=== PATIENT | female | born 1995 | race Caucasian/White ===

== ENCOUNTER 2016-12-04 14:16 | Emergency (ER) | payer BC ==
--- NOTE | 2016-12-04 14:45 | EDM.PDOC ---
ED HPI GENERAL MEDICAL PROBLEM - General Chief Complaint: Chest Pain Stated Complaint: RT SIDE CHEST PAIN Time Seen by Provider: 12/04/16 14:45 Source of Information: Reports: Patient History Limitations: Reports: No Limitations - History of Present Illness INITIAL COMMENTS - FREE TEXT/NARRATIVE: 21-year-old female presents the ED for evaluation of acute onset of right upper anterior chest pressure discomfort. Pain started about 10:00 this morning while she was at work and was worsened by bending over. She has no known injury or recent trauma to this area. Hurts a little bit at times when she takes a very deep breath. No recent coughing spells no fever no chills. In Any phlegm. No recent workouts in the gym. Has a bad family history of coronary disease. She is a never smoker. Has been on control pill for many months. Currently menstruating , this is day 2. Onset: Today Onset Date: 12/04/16 Onset Time: 10:00 Duration: Hour(s): Location: Reports: Chest (Right upper anterior chest.) Quality: Reports: Ache, Pressure Severity: Moderate Improves with: Reports: None (Rates pain as 45 out of 10.) Worsens with: Reports: Other (Hard cough) Context: Denies: Activity, Exercise, Lifting, Sick Contact, Trauma, Other Associated Symptoms: Reports: No Other Symptoms. Denies: Confusion, Chest Pain , Cough, cough w sputum, Fever/Chills, Headaches, Loss of Appetite, Malaise, Seizure, Shortness of Breath, Syncope Treatments KST OPERATOR: Reports: Other (see below) (None.) Right Chest Pain Score (Numeric/FACES): 2 - Related Data Allergies Allergy/AdvReac Type Severity Reaction Status Date / Time No Known Allergies Allergy Verified 12/04/16 14:27 Past Medical History - Past Surgical History HEENT Surgical History: Reports: Other (See Below) Other HEENT Surgeries/Procedures: dental surgery Social & Family History - Tobacco Use Smoking Status *Q: Never Smoker - Caffeine Use Caffeine Use: Reports: None - Recreational Drug Use Recreational Drug Use: No - Living Situation & Occupation Occupation: Employed ED ROS GENERAL - Review of Systems Review Of Systems: See Below Constitutional: Reports: No Symptoms HEENT: Reports: No Symptoms Respiratory: Reports: No Symptoms Cardiovascular: Reports: No Symptoms Endocrine: Reports: No Symptoms GI/Abdominal: Reports: No Symptoms : Reports: No Symptoms Musculoskeletal: Reports: No Symptoms Skin: Reports: No Symptoms Neurological: Reports: No Symptoms Psychiatric: Reports: No Symptoms Hematologic/Lymphatic: Reports: No Symptoms Immunologic: Reports: No Symptoms ED EXAM, GENERAL - Physical Exam Exam: See Below Exam Limited By: No Limitations General Appearance: Alert, WD/WN, Anxious, Mild Distress Throat/Mouth: Normal Inspection, Normal Lips, Normal Oropharynx Head: Atraumatic, Normocephalic Neck: Normal Inspection, Supple, Non-Tender, Full Range of Motion Respiratory/Chest: No Respiratory Distress, Lungs Clear, Normal Breath Sounds, No Accessory Muscle Use, Other (Chest wall is very tender over ribs 2 and 3 midclavicular line right anterior chest. Particular rib 3.) Cardiovascular: Normal Peripheral Pulses, Regular Rate, Rhythm, No Edema, No Murmur Peripheral Pulses: 2+: Posterior Tibial (L), Posterior Tibial (R), Dorsalis Pedis (L), Dorsalis Pedis (R) GI/Abdominal: Normal Bowel Sounds, Soft, Non-Tender, No Organomegaly, No Distention, No Abnormal Bruit, No Mass (Female) Exam: Normal External Exam, Normal Speculum Exam Extremities: Normal Inspection, Normal Range of Motion, Non-Tender, Normal Capillary Refill Neurological: Alert, Oriented, CN II-XII Intact, Normal Cognition, Normal Reflexes, No Motor/Sensory Deficits Psychiatric: Normal Affect, Normal Mood Skin Exam: Warm, Dry, Intact, Normal Color, No Rash Course - Vital Signs Last Recorded V/S: Last Vital Signs Temp 36.6 C 12/04/16 14:22 Pulse 94 12/04/16 14:22 Resp 18 12/04/16 14:22 BP 123/88 12/04/16 14:22 Pulse Ox 100 12/04/16 14:22 - Orders/Labs/Meds Orders: Active Orders 24 hr Category Date Time Status EKG Documentation Completion [RC] STAT Care 12/04/16 14:51 Active Labs: Laboratory Tests 12/04/16 Range/Units 15:15 D-Dimer, Quantitative < 0.19 L (0.19-0.59) mg/L - Radiology Interpretation Free Text/Narrative:: 21-year-old female presents the ED with acute onset of right upper anterior chest pain. About 10:00 this morning and is described as more deep aching pressure discomfort. She's been on oral concept pill for greater than 6 months. Currently on menstrual cycle due two. Examination is normal other than pain on compression of the third and second rib in the midclavicular line right anterior chest wall. Appears that there is a perichondritis in this area.. Plan ECG. One view chest x-ray. Labs to rule out clot with d-dimer. - Re-Assessments/Exams Free Text/Narrative Re-Assessment/Exam: 12/04/16 15:18 chest x-ray one view is normal. ECG reveals sinus rhythm at 70/m with early R-wave transition but otherwise normal ECG. Labs are pending 12/04/16 16:24 d-dimer is less than 0.19. Therefore her chest pain is chest wall in origin. She'll be treated conservatively with anti-inflammatory Aleve 2 tabs -- 3 times daily for the next 7 days to clear up inflammation and pain. Departure - Departure Time of Disposition: 16:26 Disposition: Home, Self-Care 01 Condition: Fair Clinical Impression: Non-cardiac chest pain, Anterior chest wall pain Instructions: Chest Wall Pain, [id number], Nonspecific Chest Pain, Easy-to- Read Referrals: PCP,None [Primary Care Provider] - Forms: ED Department Discharge Additional Instructions: Evaluation the emergency room today in regards to development of deep aching pain in the right upper anterior chest. Examination reveals tenderness particularly ribs 2 and 3 and 4 in the midclavicular line right anterior chest. X-ray was normal ECG was normal and lab work was negative for any blood clot or heart related illness. Inflammation of the rib or the lining around the rib is not uncommon. It can be viral induced and can sometimes last several weeks. It may be from a push pull injury 2-3 days ago that we don't remember what we did. Suggest using Aleve 2 tablets every 8 hours as needed for relief of pain and inflammation. She'll improvement over the next 5-7days. Coarse return to medical care if condition worsens rather than gets better in that timeframe. - My Orders Last 24 Hours: My Active Orders 12/04/16 14:51 EKG Documentation Completion [RC] STAT - Assessment/Plan Last 24 Hours: My Active Orders 12/04/16 14:51 EKG Documentation Completion [RC] STAT
--- NOTE | 2016-12-04 15:34 | CR ---
Chest: Portable view of the chest was obtained. Comparison: No previous study. Heart size and mediastinum are normal. Lungs are clear. Bony structures are grossly intact. Impression: 1. Nothing acute is identified on portable chest x-ray. Diagnostic code #1
[2016-12-04 16:47] VITALS: BP 117/83
== END 2016-12-04 16:37 | disposition home or self-care (01) ==
LOC: JD.ED 14:16
DX: R07.89 Other chest pain (principal); Z98.890 Other specified postprocedural states
CPT/HCPCS: 36415; 71010; 71010-26; 85379; 93005; 99283; 99285-25

== ENCOUNTER 2017-08-24 18:51 | Emergency (ER) | payer BC, OTHER ==
[2017-08-24 19:02] VITALS: BP 124/89
--- NOTE | 2017-08-24 19:39 | EDM.PDOC ---
ED HPI GENERAL MEDICAL PROBLEM - General Chief Complaint: Headache Stated Complaint: TROWING UP, HEAD HURTS Time Seen by Provider: 08/24/17 19:11 Source of Information: Reports: Patient History Limitations: Reports: No Limitations - History of Present Illness INITIAL COMMENTS - FREE TEXT/NARRATIVE: 22-year-old female presents for evaluation and treatment of a headache and nausea. States she's had a headache daily for the last week. States it is located on the left frontal area. Currently rates the pain as a 2 /10. It is present every day of the week but has been intermittent throughout the day. Reports associated symptoms of nausea. No vomiting, numbness, tingling, photophobia or phonophobia. No history of migraine headaches. No recent cough or cold symptoms. No fevers, earaches or sore throat. Patient has been taking Tylenol, Motrin and coffee without any relief of her headaches. Patient questions if she is . Her last menstrual period was on August 13. 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 Her menstrual cycle in June was a normal menstrual cycle for her. She states that she has had some lower abdominal cramping. She also feels that her breasts are more tender than normal. She has been experiencing a stronger urine odor and color. No dysuria. No heartburn. She is is . She has not taking the at-home test. Treatments LATENT FINGERPRINT EXAMINER: Reports: Other (see below) Other Treatments LATENT FINGERPRINT EXAMINER: motrin,coffee, advil Headache Pain Score (Numeric/FACES): 2 - Related Data Allergies Allergy/AdvReac Type Severity Reaction Status Date / Time sulfamethoxazole Allergy Nausea and Verified 08/24/17 19:02 [From Bactrim] Vomiting trimethoprim [From Bactrim] Allergy Nausea and Verified 08/24/17 19:02 Vomiting Home Meds: Home Meds Nitrofurantoin Monohyd/M-Cryst [Macrobid 100 mg Capsule] 100 mg PO BID #13 capsule 08/24/17 [Rx] hydrOXYzine HCl [hydrOXYzine] 25 mg PO ASDIRECTED 08/24/17 [History] Past Medical History Psychiatric History: Reports: Anxiety - Past Surgical History HEENT Surgical History: Reports: Other (See Below) Other HEENT Surgeries/Procedures: dental surgery Social & Family History - Tobacco Use Smoking Status *Q: Never Smoker - Caffeine Use Caffeine Use: Reports: Coffee, Tea - Recreational Drug Use Recreational Drug Use: No - Living Situation & Occupation Occupation: Employed ED ROS GENERAL - Review of Systems Review Of Systems: See Below Constitutional: Denies: Fever, Chills HEENT: Reports: Other (Denies any photophobia or phonophobia.). Denies: Ear Pain, Sinus Problem, Throat Pain GI/Abdominal: Reports: Abdominal Pain (lower), Nausea, Other (no heartburn). Denies: Vomiting : Reports: Pain (lower abdominal/pelvic cramping), Other (strong urine odor, darker urine color). Denies: Dysuria Neurological: Reports: Headache. Denies: Numbness, Tingling - Physical Exam Exam: See Below Exam Limited By: No Limitations General Appearance: Alert, WD/WN, No Apparent Distress Eye Exam: Bilateral Eye: Normal Inspection, PERRL Ears: Normal External Exam, Normal Canal, Hearing Grossly Normal, Normal TMs Nose: Normal Inspection Throat/Mouth: Normal Inspection, Normal Lips, Normal Voice, No Airway Compromise Neck: Normal Inspection, Full Range of Motion Respiratory/Chest: No Respiratory Distress, Lungs Clear, Normal Breath Sounds Cardiovascular: Normal Peripheral Pulses, Regular Rate, Rhythm, No Murmur Neuro Exam (Abbreviated): Alert, Oriented, Normal Cognition, Normal Gait Psychiatric: Normal Affect, Normal Mood Skin Exam: Warm, Dry, Normal Color Course - Vital Signs Last Recorded V/S: Last Vital Signs Temp 36.9 C 08/24/17 19:01 Pulse 82 08/24/17 19:01 Resp 20 08/24/17 19:01 BP 124/89 08/24/17 19:01 Pulse Ox 99 08/24/17 19:01 - Orders/Labs/Meds Orders: Active Orders 24 hr Category Date Time Status CULTURE URINE [RM] Stat Lab 08/24/17 19:45 Ordered UA W/MICROSCOPIC [URIN] Stat Lab 08/24/17 19:45 Ordered Ketorolac [Toradol] Med 08/24/17 20:28 Once 60 mg IM ONETIME ONE Nitrofurantoin [place]/Macrocryst [Macrobid] Med 08/24/17 20:28 Once 100 mg PO ONETIME ONE Medication Orders Ketorolac Tromethamine (Toradol) 60 mg IM ONETIME ONE Stop: 08/24/17 20:29 Nitrofurantoin Macrocrystals (Macrobid) 100 mg PO ONETIME ONE Stop: 08/24/17 20:29 Labs: Laboratory Tests 08/24/17 08/24/17 Range/Units 19:45 19:51 HCG, Quant < 1.0 mIU/mL Urine Color Yellow (Yellow) Urine Appearance Slt cloudy H (Clear) Urine pH 7.0 (5.0-8.0) Ur Specific [place] 1.020 (1.005-1.030) Urine Protein Negative (Negative) Urine Glucose (UA) Negative (Negative) Urine Ketones Negative (Negative) Urine Occult Blood Negative (Negative) Urine Nitrite Negative (Negative) Urine Bilirubin Negative (Negative) Urine Urobilinogen 0.2 (0.2-1.0) Ur Leukocyte Esterase Trace H (Negative) Urine RBC 0-5 (0-5) /hpf Urine WBC 5-10 H (0-5) /hpf Ur Epithelial Cells 10-20 H (0-5) /hpf Amorphous Sediment Moderate H (NOT SEEN) /hpf Urine Bacteria Moderate H (FEW) /hpf Urine Mucus Not seen (FEW) /hpf Meds: Medications Generic Name Dose Route Start Last Admin Trade Name Freq PRN Reason Stop Dose Admin Ketorolac Tromethamine 60 mg 08/24/17 20:28 Toradol IM 08/24/17 20:29 ONETIME ONE Nitrofurantoin Macrocrystals 100 mg 08/24/17 20:28 Macrobid PO 08/24/17 20:29 ONETIME ONE - Re-Assessments/Exams Free Text/Narrative Re-Assessment/Exam: 08/24/17 20:29 Reviewed the lab results with the patient. Now that We've confirmed she is not I will order her some IM Toradol and star her on some Macrobid for urinary tract infection. Discharge instructions as documented. Departure - Departure Time of Disposition: 20:30 Disposition: Home, Self-Care 01 Condition: Good Clinical Impression: UTI (urinary tract infection), Headache - Discharge Information Prescriptions: Nitrofurantoin Monohyd/M-Cryst [Macrobid 100 mg Capsule] 100 mg PO BID #13 capsule Referrals: PCP,None [Primary Care Provider] - Forms: ED Department Discharge Additional Instructions: Continue take [id number] Tylenol and Motrin as needed for headache symptom relief. Make sure you are drinking plenty of fluids. Macrobid 1 Twice a day for 7 days. your first dose was given in the ER. Start your prescription tomorrow. follow-up with your primary care provider if your symptoms have not improved much within 1-2 weeks. Please return to ER if your symptoms change or worsen. - My Orders Last 24 Hours: My Active Orders 08/24/17 19:45 CULTURE URINE [RM] Stat UA W/MICROSCOPIC [URIN] Stat 08/24/17 20:28 Ketorolac [Toradol] 60 mg IM ONETIME ONE Nitrofurantoin [place]/Macrocryst [Macrobid] 100 mg PO ONETIME ONE - Assessment/Plan Last 24 Hours: My Active Orders 08/24/17 19:45 CULTURE URINE [RM] Stat UA W/MICROSCOPIC [URIN] Stat 08/24/17 20:28 Ketorolac [Toradol] 60 mg IM ONETIME ONE Nitrofurantoin [place]/Macrocryst [Macrobid] 100 mg PO ONETIME ONE
[2017-08-24] MEDS ORDERED: Nitrofurantoin Monohydrate/Macrocrystalline 100 MG Cap PO ONE (20:28)
[2017-08-24] MEDS ORDERED: Ketorolac 60 MG/2 ML SDV IM ONE (20:28)
== END 2017-08-24 20:40 | disposition home or self-care (01) ==
LOC: JD.ED 18:51
DX: N39.0 Urinary tract infection, site not specified (principal); R51 Headache; Z88.2 Allergy status to sulfonamides; Z88.1 Allergy status to other antibiotic agents
CPT/HCPCS: 36415; 81001; 84702; 87086; 96372; 99284; A9270; J1885; 99283

== ENCOUNTER 2019-07-25 00:11 | Emergency (ER) | payer BC, OTHER ==
[2019-07-25 00:19] VITALS: BP 135/89; PULSE 113
--- NOTE | 2019-07-25 00:26 | EDM.PDOC ---
ED HPI GENERAL MEDICAL PROBLEM - General Chief Complaint: Drug or Alcohol Abuse Stated Complaint: [facility] Time Seen by Provider: 07/25/19 00:20 Source of Information: Reports: Patient, EMS History Limitations: Reports: No Limitations - History of Present Illness INITIAL COMMENTS - FREE TEXT/NARRATIVE: This is a 24-year-old female. She apparently had to 30 mg Cori use and she crush them up and she snorted 1-1/2 of them are about 45 mg. She thereafter passed out and a friend who was across the [place] in the apartments heard her hit the floor. He came over thought she was breathing called 911 and when the police first arrived she was not breathing effectively and they started CPR on the patient. When the ambulance arrived she had a good pulse and they just continued with an Ambu bag. The police did give some Narcan intranasally but it did not seem to wake her up and with the ambulance arrived they gave her Narcan through the IV and she woke up. She is awake now and oriented. She complains of a sore chest. She denies any other acute symptoms. - Related Data Allergies Allergy/AdvReac Type Severity Reaction Status Date / Time sulfamethoxazole Allergy Nausea and Verified 07/25/19 00:15 [From Bactrim] Vomiting trimethoprim [From Bactrim] Allergy Nausea and Verified 07/25/19 00:15 Vomiting Home Meds: Home Meds hydrOXYzine HCL [hydrOXYzine] 25 mg PO ASDIRECTED 08/24/17 [History] Control 07/25/19 [History] Past Medical History Psychiatric History: Reports: Anxiety - Past Surgical History HEENT Surgical History: Reports: Other (See Below) Other HEENT Surgeries/Procedures: dental surgery Social & Family History - Tobacco Use Smoking Status *Q: Never Smoker - Caffeine Use Caffeine Use: Reports: Coffee, Tea - Recreational Drug Use Recreational Drug Use: Yes Drug Use in Last 12 Months: Yes Recreational Drug Type: Reports: Oxycodone - Living Situation & Occupation Occupation: Employed ED ROS GENERAL - Review of Systems Review Of Systems: See Below Constitutional: Denies: Fever, Chills HEENT: Reports: No Symptoms Respiratory: Denies: Shortness of Breath, Cough Cardiovascular: Reports: Chest Pain Endocrine: Reports: No Symptoms GI/Abdominal: Reports: No Symptoms : Reports: No Symptoms Musculoskeletal: Reports: No Symptoms Skin: Reports: No Symptoms Neurological: Reports: No Symptoms Psychiatric: Reports: No Symptoms Hematologic/Lymphatic: Reports: No Symptoms - Physical Exam Exam: See Below Exam Limited By: No Limitations General Appearance: Alert, WD/WN, No Apparent Distress Eye Exam: Bilateral Eye: Normal Inspection Ears: Normal External Exam Nose: Normal Inspection Throat/Mouth: Normal Inspection, Normal Lips, Normal Voice, No Airway Compromise Head Exam: Normocephalic Neck: Supple Respiratory/Chest: No Respiratory Distress, Lungs Clear, Normal Breath Sounds, Other (Center of chest is very sore on palpation) Cardiovascular: Regular Rate, Rhythm, No Murmur GI/Abdominal: Soft Neuro Exam (Abbreviated): Alert, Oriented, CN II-XII Intact, No Motor/Sensory Deficits Extremities: Normal Inspection, Normal Range of Motion Psychiatric: Normal Affect, Normal Mood Skin Exam: Warm, Dry Course - Vital Signs Last Recorded V/S: Last Vital Signs Temp 97.8 F 07/25/19 00:15 Pulse 113 H 07/25/19 00:15 Resp 18 07/25/19 00:15 BP 135/89 07/25/19 00:15 Pulse Ox 90 L 07/25/19 00:15 - Orders/Labs/Meds Labs: Laboratory Tests 07/25/19 07/25/19 07/25/19 Range/Units 00:31 00:31 00:31 WBC 6.97 (3.98-10.04) K/mm3 RBC 4.33 (3.98-5.22) M/mm3 Hgb 12.6 (11.2-15.7) gm/dl Hct 39.1 (34.1-44.9) % MCV 90.3 (79.4-94.8) fl MCH 29.1 (25.6-32.2) pg MCHC 32.2 (32.2-35.5) g/dl RDW Std Deviation 42.9 (36.4-46.3) fL Plt Count 357 (182-369) K/mm3 MPV 8.9 L (9.4-12.3) fl Neut % (Auto) 50.9 (34.0-71.1) % Lymph % (Auto) 41.6 (19.3-51.7) % [place] % (Auto) 5.7 (4.7-12.5) % Eos % (Auto) 1.4 (0.7-5.8) Baso % (Auto) 0.1 (0.1-1.2) % Neut # (Auto) 3.54 (1.56-6.13) K/mm3 Lymph # (Auto) 2.90 (1.18-3.74) K/mm3 [place] # (Auto) 0.40 H (0.24-0.36) K/mm3 Eos # (Auto) 0.10 (0.04-0.36) K/mm3 Baso # (Auto) 0.01 (0.01-0.08) K/mm3 Sodium 141 (136-145) mEq/L Potassium 3.5 (3.5-5.1) mEq/L Chloride 105 (98-107) mEq/L Carbon Dioxide 23 (21-32) mEq/L Anion Gap 16.5 H (5-15) BUN 10 (7-18) mg/dL Creatinine 0.9 (0.55-1.02) mg/dL Est Cr Clr Drug Dosing 80.42 mL/min Estimated GFR (MDRD) > 60 (>60) mL/min BUN/Creatinine Ratio 11.1 L (14-18) Glucose 140 H (74-106) mg/dL Calcium 8.9 (8.5-10.1) mg/dL Total Bilirubin 0.1 L (0.2-1.0) mg/dL AST 38 H (15-37) U/L ALT 51 (14-59) U/L Alkaline Phosphatase 56 (46-116) U/L Total Protein 7.2 (6.4-8.2) g/dl Albumin 3.4 (3.4-5.0) g/dl Globulin 3.8 gm/dL Albumin/Globulin Ratio 0.9 L (1-2) HCG, Qual Negative (NEGATIVE) Urine Color (Yellow) Urine Appearance (Clear) Urine pH (5.0-8.0) Ur Specific [place] (1.005-1.030) Urine Protein (Negative) Urine Glucose (UA) (Negative) Urine Ketones (Negative) Urine Occult Blood (Negative) Urine Nitrite (Negative) Urine Bilirubin (Negative) Urine Urobilinogen (0.2-1.0) Ur Leukocyte Esterase (Negative) U Hyaline Cast (Auto) (0-5) /lpf Urine RBC (0-5) /hpf Urine WBC (0-5) /hpf Ur Squamous Epith Cells (0-5) /hpf Urine Bacteria (FEW) /hpf Urine Mucus (FEW) /hpf Urine Opiates Screen (IECKFE=740) Ur Buprenorphine Scrn (CUTOFF=10) Ur Oxycodone Screen (KFI8CU=864) Urine Methadone Screen (EMGHSW=826) Ur Propoxyphene Screen (BBAFJD=791) Ur Barbiturates Screen (SCSDPP=079) Ur Tricyclics Screen (CAKKEB=095) Ur Phencyclidine Scrn (CUTOFF=25) Ur Amphetamine Screen (DPORKM=227) U Methamphetamines Scrn (MMJDRB=221) U Benzodiazepines Scrn (LBNCXS=097) U Cocaine Metab Screen (HEGOOD=074) U Marijuana (THC) Screen (CUTOFF=50) 07/25/19 07/25/19 Range/Units 00:41 00:41 WBC (3.98-10.04) K/mm3 RBC (3.98-5.22) M/mm3 Hgb (11.2-15.7) gm/dl Hct (34.1-44.9) % MCV (79.4-94.8) fl MCH (25.6-32.2) pg MCHC (32.2-35.5) g/dl RDW Std Deviation (36.4-46.3) fL Plt Count (182-369) K/mm3 MPV (9.4-12.3) fl Neut % (Auto) (34.0-71.1) % Lymph % (Auto) (19.3-51.7) % [place] % (Auto) (4.7-12.5) % Eos % (Auto) (0.7-5.8) Baso % (Auto) (0.1-1.2) % Neut # (Auto) (1.56-6.13) K/mm3 Lymph # (Auto) (1.18-3.74) K/mm3 [place] # (Auto) (0.24-0.36) K/mm3 Eos # (Auto) (0.04-0.36) K/mm3 Baso # (Auto) (0.01-0.08) K/mm3 Sodium (136-145) mEq/L Potassium (3.5-5.1) mEq/L Chloride (98-107) mEq/L Carbon Dioxide (21-32) mEq/L Anion Gap (5-15) BUN (7-18) mg/dL Creatinine (0.55-1.02) mg/dL Est Cr Clr Drug Dosing mL/min Estimated GFR (MDRD) (>60) mL/min BUN/Creatinine Ratio (14-18) Glucose (74-106) mg/dL Calcium (8.5-10.1) mg/dL Total Bilirubin (0.2-1.0) mg/dL AST (15-37) U/L ALT (14-59) U/L Alkaline Phosphatase (46-116) U/L Total Protein (6.4-8.2) g/dl Albumin (3.4-5.0) g/dl Globulin gm/dL Albumin/Globulin Ratio (1-2) HCG, Qual (NEGATIVE) Urine Color Yellow (Yellow) Urine Appearance Clear (Clear) Urine pH 7.0 (5.0-8.0) Ur Specific [place] 1.025 (1.005-1.030) Urine Protein Trace H (Negative) Urine Glucose (UA) Negative (Negative) Urine Ketones Negative (Negative) Urine Occult Blood Negative (Negative) Urine Nitrite Negative (Negative) Urine Bilirubin Negative (Negative) Urine Urobilinogen 0.2 (0.2-1.0) Ur Leukocyte Esterase Negative (Negative) U Hyaline Cast (Auto) 0-5 (0-5) /lpf Urine RBC 0-5 (0-5) /hpf Urine WBC 0-5 (0-5) /hpf Ur Squamous Epith Cells 0-5 (0-5) /hpf Urine Bacteria Few (FEW) /hpf Urine Mucus Few (FEW) /hpf Urine Opiates Screen Negative (OICFCX=837) Ur Buprenorphine Scrn Negative (CUTOFF=10) Ur Oxycodone Screen Negative (UHL1ND=112) Urine Methadone Screen Negative (GDTGSE=864) Ur Propoxyphene Screen Negative (PTZOSK=087) Ur Barbiturates Screen Negative (DXEKHF=297) Ur Tricyclics Screen Negative (WTOFWJ=099) Ur Phencyclidine Scrn Negative (CUTOFF=25) Ur Amphetamine Screen Negative (WHTHNV=558) U Methamphetamines Scrn Negative (TDHAVD=488) U Benzodiazepines Scrn Negative (ZDUYHV=693) U Cocaine Metab Screen Negative (VTVTRQ=313) U Marijuana (THC) Screen Negative (CUTOFF=50) - Re-Assessments/Exams Free Text/Narrative Re-Assessment/Exam: 07/25/19 03:14 Spoke to the patient regarding her lab results. She is remained awake and talkative the entire time. Is been about 3 hours since she did this and she has not fallen asleep and I think she is safe to go home at this time. We discussed at length that she should not be doing this and that she is nick to be alive tonight. I explained she will be also sore in her chest since they did CPR for about 4 minutes before they gave the second dose of Narcan that woke her up. She understands. Departure - Departure Time of Disposition: 03:15 Disposition: Home, Self-Care 01 Condition: Fair Clinical Impression: Respiratory arrest, Drug abuse Accidental overdose Qualifiers: Encounter type: initial encounter Qualified Code(s): T50.901A - Poisoning by unspecified drugs, medicaments and biological substances, accidental ( unintentional), initial encounter - Discharge Information *PRESCRIPTION DRUG MONITORING PROGRAM REVIEWED*: Not Applicable *COPY OF PRESCRIPTION DRUG MONITORING REPORT IN PATIENT CLIVE: Not Applicable Instructions: Accidental Overdose, Substance Use Disorder Referrals: Deb Caceres PA-C [Primary Care Provider] - Forms: ED Department Discharge Additional Instructions: Do not ever do this again since you nearly tonight and they had to do compressions on your chest to keep you alive and breathing, no alcohol no drugs for the next 24 hours and never snort oxycodone again as it will kill you, return to the ER if needed Sepsis Event Note - Evaluation Sepsis Screening Result: No Definite Risk - Focused Exam Vital Signs: Vital Signs Temp Pulse Resp BP Pulse Ox 07/25/19 00:15 97.8 F 113 H 18 135/89 90 L Date Exam was Performed: 07/25/19 Time Exam was Performed: 03:14
== END 2019-07-25 03:27 | disposition home or self-care (01) ==
LOC: JD.ED 00:11
DX: R09.2 Respiratory arrest (principal); T65.891A Toxic effect of other specified substances, accidental (unintentional), initial encounter; Z88.2 Allergy status to sulfonamides; Z88.1 Allergy status to other antibiotic agents
CPT/HCPCS: 36415; 80053; 80306; 81001; 84703; 85025; 99285

== ENCOUNTER 2019-07-28 21:19 | Emergency (ER) | payer BC ==
[2019-07-28 21:32] VITALS: BP 149/95; PULSE 94
--- NOTE | 2019-07-28 21:40 | EDM.PDOC ---
ED HPI GENERAL MEDICAL PROBLEM - General Chief Complaint: Head Injury Stated Complaint: HEAD PAIN Time Seen by Provider: 07/28/19 21:30 Source of Information: Reports: Patient History Limitations: Reports: No Limitations - History of Present Illness INITIAL COMMENTS - FREE TEXT/NARRATIVE: The patient presents with a headache. She accidently overdosed on oxycodone early Friday and she fell back and hit her head. She has been having headaches since then. She has no numbness or weakness. She has no nausea or vomiting. She is on on blood thinners. She does not think she is . Onset: Sudden Duration: Day(s): Location: Reports: Head Quality: Reports: Sharp Severity: Severe Improves with: Reports: None Worsens with: Reports: None Associated Symptoms: Reports: Headaches. Denies: Chest Pain, Cough, Fever/ Chills, Nausea/Vomiting Head Pain Score (Numeric/FACES): 4 - Related Data Allergies Allergy/AdvReac Type Severity Reaction Status Date / Time sulfamethoxazole Allergy Nausea and Verified 07/28/19 21:32 [From Bactrim] Vomiting trimethoprim [From Bactrim] Allergy Nausea and Verified 07/28/19 21:32 Vomiting Home Meds: Home Meds hydrOXYzine HCL [hydrOXYzine] 25 mg PO ASDIRECTED 08/24/17 [History] Control 07/25/19 [History] Past Medical History Psychiatric History: Reports: Anxiety - Past Surgical History HEENT Surgical History: Reports: Other (See Below) Other HEENT Surgeries/Procedures: dental surgery Social & Family History - Caffeine Use Caffeine Use: Reports: Coffee, Tea - Living Situation & Occupation Occupation: Employed ED ROS GENERAL - Review of Systems Review Of Systems: See Below Constitutional: Reports: No Symptoms HEENT: Reports: No Symptoms Respiratory: Reports: No Symptoms Cardiovascular: Reports: No Symptoms Endocrine: Reports: No Symptoms GI/Abdominal: Reports: No Symptoms : Reports: No Symptoms Musculoskeletal: Reports: No Symptoms Neurological: Reports: Headache ED EXAM, HEAD INJURY - Physical Exam Exam: See Below Exam Limited By: No Limitations General Appearance: Alert, No Apparent Distress Head: Other (Pain upon palpation to the back of the head) Eyes: Bilateral Eye: EOMI Ears: Normal External Exam Nose: Normal Inspection Neck: Non-Tender, Full Range of Motion, Normal Alignment, Normal Inspection Respiratory: No Respiratory Distress, Lungs Clear, Normal Breath Sounds Cardiovascular: Regular Rate, Rhythm, No Edema, No Murmur GI/Abdominal Exam: Soft, Non-Tender, No Organomegaly, No Mass Back Exam: Normal Inspection Extremities: Normal Inspection Course - Vital Signs Last Recorded V/S: Last Vital Signs Temp 98.9 F 07/28/19 21:29 Pulse 94 07/28/19 21:29 Resp 16 07/28/19 21:29 BP 149/95 H 07/28/19 21:29 Pulse Ox 97 07/28/19 21:29 - Orders/Labs/Meds Orders: Active Orders 24 hr Category Date Time Status Head wo Cont [CT] Stat Exams 07/28/19 21:35 Taken - Re-Assessments/Exams Free Text/Narrative Re-Assessment/Exam: 07/28/19 21:40 I have ordered a CT of her head. 07/28/19 22:[address] of her head looks good. I will discharge her home. Departure - Departure Time of Disposition: 22:30 Disposition: Home, Self-Care 01 Condition: Good Clinical Impression: Concussion injury of brain Fall Qualifiers: Encounter type: subsequent encounter Qualified Code(s): W19.XXXD - Unspecified fall, subsequent encounter - Discharge Information *PRESCRIPTION DRUG MONITORING PROGRAM REVIEWED*: Not Applicable *COPY OF PRESCRIPTION DRUG MONITORING REPORT IN PATIENT CLIVE: Not Applicable Referrals: Deb Caceres PA-C [Primary Care Provider] - 1 Week Forms: ED Department Discharge Additional Instructions: Take tylenol or motrin for the pain. Follow up with Ally Caceres. Please return if you are worse. Sepsis Event Note - Evaluation Sepsis Screening Result: No Definite Risk - Focused Exam Vital Signs: Vital Signs Temp Pulse Resp BP Pulse Ox 07/28/19 21:29 98.9 F 94 16 149/95 H 97 Date Exam was Performed: 07/28/19 Time Exam was Performed: 22:26 - My Orders Last 24 Hours: My Active Orders 07/28/19 21:35 Head wo Cont [CT] Stat - Assessment/Plan Last 24 Hours: My Active Orders 07/28/19 21:35 Head wo Cont [CT] Stat
--- NOTE | 2019-07-29 07:06 | CT ---
Head CT Technique: Multiple axial sections through the brain were obtained. Intravenous contrast was not utilized. Comparison: No prior intracranial imaging is available. Findings: Ventricles along with basal cisterns and sulci over the convexities are within normal limits for the patient's age. No abnormal parenchymal densities are seen. No evidence of intracranial hemorrhage. No midline shift or mass-effect is seen. Bone window settings were reviewed. No acute calvarial abnormality is seen. Visualized mastoid sinuses and visualized paranasal sinuses are clear. Impression: 1. Nothing acute is appreciated on noncontrast head CT exam. Diagnostic code #1 This report was dictated in MDT I agree with preliminary report from [facility], finalized on 07/28/19, 11:21 PM Central Time
== END 2019-07-28 22:30 | disposition home or self-care (01) ==
LOC: JD.ED 21:19
DX: S06.0X9A Concussion with loss of consciousness of unspecified duration, initial encounter (principal); Z88.2 Allergy status to sulfonamides; Z88.1 Allergy status to other antibiotic agents; W19.XXXA Unspecified fall, initial encounter
CPT/HCPCS: 70450; 70450-26; 99283; 99284-25

== ENCOUNTER 2021-04-28 18:03 | Emergency (ER) | payer BC ==
[2021-04-28 18:44] VITALS: BP 139/99; PULSE 110
[2021-04-28] MEDS ORDERED: Ondansetron 4 MG/2 ML SDV IVPUSH ONE (18:50)
[2021-04-28] MEDS ORDERED: Sodium Chloride 0.9% 1,000 ML IV ONE (18:50)
[2021-04-28] MEDS ORDERED: HYDROmorphone 0.5 MG/0.5 ML Syringe IVPUSH ONE (18:50)
[2021-04-28] MEDS: Sodium Chloride 0.9% 10 ML Syringe FLUSH PRN ×2 (19:15→21:57)
--- NOTE | 2021-04-28 20:52 | EDM.PDOC ---
<Mj Apodaca Celine - Last Filed: 04/28/21 22:47> ED HPI GENERAL MEDICAL PROBLEM - General Chief Complaint: Abdominal Pain Stated Complaint: SHARP PAINS DOWN STOMACH Time Seen by Provider: 04/28/21 18:31 - Related Data Allergies Allergy/AdvReac Type Severity Reaction Status Date / Time sulfamethoxazole Allergy Nausea and Verified 07/28/19 21:32 [From Bactrim] Vomiting trimethoprim [From Bactrim] Allergy Nausea and Verified 07/28/19 21:32 Vomiting Home Meds: Home Meds hydrOXYzine HCL [hydrOXYzine] 25 mg PO ASDIRECTED PRN 08/24/17 [History] Escitalopram Oxalate 20 mg PO DAILY 04/23/21 [History] traZODone HCl [Trazodone HCl] 50 mg PO BEDTIME 04/23/21 [History] Levonorgestrel-Ethin Estradiol [Vienva-28 Tablet] 1 tab PO DAILY 04/28/21 [History] Nitrofurantoin Monohyd/M-Cryst [Macrobid 100 mg Capsule] 100 mg PO BID #10 capsule 04/28/21 [Rx] Course - Re-Assessments/Exams Free Text/Narrative Re-Assessment/Exam: 04/28/21 21:37 have assumed care from Enid Peterson at change of shift. I agree with her hx and exam as documented. awaiting CT results. Departure - Departure Time of Disposition: 22:48 Disposition: Home, Self-Care 01 Condition: Fair Clinical Impression: Abdominal pain Qualifiers: Abdominal location: lower abdomen, unspecified Qualified Code(s): R10.30 - Lower abdominal pain, unspecified UTI (urinary tract infection) Qualifiers: Urinary tract infection type: acute cystitis Hematuria presence: without hematuria Qualified Code(s): N30.00 - Acute cystitis without hematuria - Discharge Information Prescriptions: Nitrofurantoin Monohyd/M-Cryst [Macrobid 100 mg Capsule] 100 mg PO BID #10 capsule Referrals: Deb Caceres PA-C [Primary Care Provider] - Forms: ED Department Discharge Additional Instructions: CT of abd/pelvis does not show any acute findings. Ua shows trace UTI. macrobid 100 mg twice daily for 5 days or until gone. Prescription has been sent to [facility]. They are open 12 noon to 4 PM tomorrow so pick it up during that time period. Follow up clinic as needed if sx not resolving as expected. Return to ED as needed if symptoms worsening in any way. <Julio Peterson - Last Filed: 04/29/21 11:04> ED HPI GENERAL MEDICAL PROBLEM - General Source of Information: Reports: Patient History Limitations: Reports: No Limitations - History of Present Illness INITIAL COMMENTS - FREE TEXT/NARRATIVE: 26-year-old female presents the emergency department today with complaints of mid abdominal pain that started at approximately 9 AM this morning. She states she did have to leave work due to the discomfort. She states she laid down to take a nap to see if it would resolve however when she woke up she still had a significant amount of discomfort. States that pain is located from about the epigastric area straight down through the umbilicus. She states she has been belching more than usual. She states she did have a bowel movement today and does have a regular bowel movement daily, however she had been on Metformin and states that this gave her diarrhea. She has been off Metformin for 4 days now. She was able to eat lunch this afternoon approximately 1400 and has been drinking fluids appropriately. States that the maximum severity of her pain she did feel nauseated and lightheaded. Denies any recent fever, chills, cough, headache, shortness of breath. Denies any urinary symptoms. 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 (see below) Other Treatments TRUCK MECHANIC APPRENTICE: none Middle Abdomen Pain Score (Numeric/FACES): 4 Past Medical History Psychiatric History: Reports: Anxiety, Other (See Below) Other Psychiatric History: PCOS- on control for it - Infectious Disease History Infectious Disease History: Reports: None - Past Surgical History HEENT Surgical History: Reports: Other (See Below) Other HEENT Surgeries/Procedures: dental surgery Social & Family History - Tobacco Use Tobacco Use Status *Q: Never Tobacco User - Caffeine Use Caffeine Use: Reports: Coffee, Tea - Recreational Drug Use Recreational Drug Use: No - Living Situation & Occupation Occupation: Employed ED ROS GENERAL - Review of Systems Review Of Systems: Comprehensive ROS is negative, except as noted in HPI. ED EXAM, GI/ABD - Physical Exam Exam: See Below Exam Limited By: No Limitations General Appearance: Alert, WD/WN, No Apparent Distress Ears: Normal External Exam, Hearing Grossly Normal Nose: Normal Inspection Throat/Mouth: Normal Inspection, Normal Lips, Normal Voice, No Airway Compromise Head: Atraumatic, Normocephalic Neck: Normal Inspection, Supple, Non-Tender, Full Range of Motion Respiratory/Chest: No Respiratory Distress, Lungs Clear, Normal Breath Sounds, No Accessory Muscle Use, Chest Non-Tender Cardiovascular: Normal Peripheral Pulses, Regular Rate, Rhythm, No Edema, No Murmur GI/Abdominal Exam: Normal Bowel Sounds, Soft, No Distention, Tender (Left upper and right upper quadrant as well as right lower quadrant) (Female) Exam: Deferred Rectal (Female) Exam: Deferred Back Exam: Normal Inspection Extremities: Normal Inspection, Normal Range of Motion, Non-Tender, No Pedal Edema, Normal Capillary Refill Neurological: Alert, Oriented, Normal Cognition Psychiatric: Normal Affect, Normal Mood Skin Exam: Warm, Dry, Intact, Normal Color, No Rash Lymphatic: No Adenopathy Course - Vital Signs Text/Narrative:: As stated above, patient presents with abdominal discomfort that started approximately 9 AM this morning. Patient is hemodynamically stable at the time of my exam. Abdomen is not distended. Bowel tones are present in all 4 quadrants. Patient does have a significant amount of tenderness noted to right lower right upper and left upper quadrant. She also has suprapubic tenderness appreciated. Will obtain lab studies as well as a flatplate of the abdomen. We will give the patient a liter of normal saline as well as Dilaudid for the pain and Zofran for any nausea. Last Recorded V/S: Last Vital Signs Temp 98.5 F 04/28/21 18:42 Pulse 110 H 04/28/21 18:42 Resp 20 04/28/21 18:42 BP 139/99 H 04/28/21 18:42 Pulse Ox 96 04/28/21 18:42 - Orders/Labs/Meds Orders: Active Orders 24 hr Category Date Time Status CULTURE URINE [MREF] Stat Lab 04/28/21 20:00 Received Saline Lock Insert [OM.PC] Stat Oth 04/28/21 18:48 Ordered Labs: Laboratory Tests 04/28/21 04/28/21 04/28/21 Range/Units 19:05 19:05 19:05 WBC 9.96 (3.98-10.04) K/mm3 RBC 4.32 (3.98-5.22) M/mm3 Hgb 12.4 (11.2-15.7) gm/dl Hct 37.1 (34.1-44.9) % MCV 85.9 (79.4-94.8) fl MCH 28.7 (25.6-32.2) pg MCHC 33.4 (32.2-35.5) g/dl RDW Std Deviation 41.9 (36.4-46.3) fL Plt Count 356 (182-369) K/mm3 MPV 8.8 L (9.4-12.3) fl Neut % (Auto) 88.7 H (34.0-71.1) % Lymph % (Auto) 8.7 L (19.3-51.7) % Knox % (Auto) 2.1 L (4.7-12.5) % Eos % (Auto) 0.1 L (0.7-5.8) Baso % (Auto) 0.1 (0.1-1.2) % Neut # (Auto) 8.83 H (1.56-6.13) K/mm3 Lymph # (Auto) 0.87 L (1.18-3.74) K/mm3 Knox # (Auto) 0.21 L (0.24-0.36) K/mm3 Eos # (Auto) 0.01 L (0.04-0.36) K/mm3 Baso # (Auto) 0.01 (0.01-0.08) K/mm3 Sodium 139 (136-145) mEq/L Potassium 3.6 (3.5-5.1) mEq/L Chloride 102 (98-107) mEq/L Carbon Dioxide 27 (21-32) mEq/L Anion Gap 13.6 (5-15) BUN 13 (7-18) mg/dL Creatinine 0.7 (0.55-1.02) mg/dL Est Cr Clr Drug Dosing 101.63 mL/min Estimated GFR (MDRD) > 60 (>60) mL/min BUN/Creatinine Ratio 18.6 H (14-18) Glucose 106 H (70-99) mg/dL Calcium 8.6 (8.5-10.1) mg/dL Magnesium 1.9 (1.8-2.4) mg/dL Total Bilirubin 0.2 (0.2-1.0) mg/dL AST 18 (15-37) U/L ALT 23 (14-59) U/L Alkaline Phosphatase 66 (46-116) U/L C-Reactive Protein 3.3 H* (<1.0) mg/dL Total Protein 7.2 (6.4-8.2) g/dl Albumin 3.3 L (3.4-5.0) g/dl Globulin 3.9 gm/dL Albumin/Globulin Ratio 0.9 L (1-2) Lipase 70 L (73-393) U/L Urine Color (Yellow) Urine Appearance (Clear) Urine pH (5.0-8.0) Ur Specific Secretary (1.005-1.030) Urine Protein (Negative) Urine Glucose (UA) (Negative) Urine Ketones (Negative) Urine Occult Blood (Negative) Urine Nitrite (Negative) Urine Bilirubin (Negative) Urine Urobilinogen (0.2-1.0) Ur Leukocyte Esterase (Negative) Urine RBC (0-5) /hpf Urine WBC (0-5) /hpf Ur Squamous Epith Cells (0-5) /hpf Urine Bacteria (FEW) /hpf Urine Mucus (FEW) /hpf 04/28/21 Range/Units 20:00 WBC (3.98-10.04) K/mm3 RBC (3.98-5.22) M/mm3 Hgb (11.2-15.7) gm/dl Hct (34.1-44.9) % MCV (79.4-94.8) fl MCH (25.6-32.2) pg MCHC (32.2-35.5) g/dl RDW Std Deviation (36.4-46.3) fL Plt Count (182-369) K/mm3 MPV (9.4-12.3) fl Neut % (Auto) (34.0-71.1) % Lymph % (Auto) (19.3-51.7) % Knox % (Auto) (4.7-12.5) % Eos % (Auto) (0.7-5.8) Baso % (Auto) (0.1-1.2) % Neut # (Auto) (1.56-6.13) K/mm3 Lymph # (Auto) (1.18-3.74) K/mm3 Knox # (Auto) (0.24-0.36) K/mm3 Eos # (Auto) (0.04-0.36) K/mm3 Baso # (Auto) (0.01-0.08) K/mm3 Sodium (136-145) mEq/L Potassium (3.5-5.1) mEq/L Chloride (98-107) mEq/L Carbon Dioxide (21-32) mEq/L Anion Gap (5-15) BUN (7-18) mg/dL Creatinine (0.55-1.02) mg/dL Est Cr Clr Drug Dosing mL/min Estimated GFR (MDRD) (>60) mL/min BUN/Creatinine Ratio (14-18) Glucose (70-99) mg/dL Calcium (8.5-10.1) mg/dL Magnesium (1.8-2.4) mg/dL Total Bilirubin (0.2-1.0) mg/dL AST (15-37) U/L ALT (14-59) U/L Alkaline Phosphatase (46-116) U/L C-Reactive Protein (<1.0) mg/dL Total Protein (6.4-8.2) g/dl Albumin (3.4-5.0) g/dl Globulin gm/dL Albumin/Globulin Ratio (1-2) Lipase (73-393) U/L Urine Color Light yellow (Yellow) Urine Appearance Slt cloudy H (Clear) Urine pH 7.5 (5.0-8.0) Ur Specific Secretary 1.020 (1.005-1.030) Urine Protein Negative (Negative) Urine Glucose (UA) Negative (Negative) Urine Ketones Negative (Negative) Urine Occult Blood Negative (Negative) Urine Nitrite Negative (Negative) Urine Bilirubin Negative (Negative) Urine Urobilinogen 1.0 (0.2-1.0) Ur Leukocyte Esterase Trace H (Negative) Urine RBC 0-5 (0-5) /hpf Urine WBC 0-5 (0-5) /hpf Ur Squamous Epith Cells 5-10 H (0-5) /hpf Urine Bacteria Moderate H (FEW) /hpf Urine Mucus Not seen (FEW) /hpf Meds: Medications Discontinued Medications Generic Name Dose Route Start Last Admin Trade Name Freq PRN Reason Stop Dose Admin Diatrizoate Meglum/Diatrizoate Sod 120 ml 04/28/21 21:47 04/28/21 21:57 Diatrizoate Meglumine/Diatrizoate Sodium 37% 120 Ml Bottle PO 04/28/21 21:48 120 ml ONETIME ONE Administration Hydromorphone HCl 0.25 mg 04/28/21 18:50 04/28/21 19:12 Hydromorphone 0.5 Mg/0.5 Ml Syringe IVPUSH 04/28/21 18:51 0.25 mg ONETIME ONE Administration Sodium Chloride 1,000 mls @ 999 mls/hr 04/28/21 18:50 04/28/21 19:15 Normal Saline IV 04/28/21 19:50 999 mls/hr ONETIME ONE Administration Iopamidol 100 ml 04/28/21 21:47 04/28/21 21:57 Iopamidol 612 Mg/Ml 100 Ml Bottle IVPUSH 04/28/21 21:48 100 ml ONETIME ONE Administration Iopamidol 50 ml 04/28/21 21:47 04/28/21 21:57 Iopamidol 612 Mg/Ml 50 Ml Sdv IVPUSH 04/28/21 21:48 50 ml ONETIME ONE Administration Nitrofurantoin Macrocrystals 100 mg 04/28/21 22:45 04/28/21 23:04 Nitrofurantoin Monohydrate/Macrocrystalline 100 Mg Cap PO 04/28/21 22:46 100 mg ONETIME ONE Administration Ondansetron HCl 4 mg 04/28/21 18:50 04/28/21 19:10 Ondansetron 4 Mg/2 Ml Sdv IVPUSH 04/28/21 18:51 4 mg ONETIME ONE Administration Sodium Chloride 10 ml 04/28/21 18:48 04/28/21 21:57 Sodium Chloride 0.9% 10 Ml Syringe FLUSH 10 ml ASDIRECTED PRN Administration Keep Vein Open Sodium Chloride 10 ml 04/28/21 21:47 Sodium Chloride 0.9% 10 Ml Sdv FLUSH 04/28/21 21:48 ONETIME ONE - Radiology Interpretation Free Text/Narrative:: Nothing acute is appreciated on flatplate of the abdomen. Bowel gas pattern appears within normal limits. - Re-Assessments/Exams Free Text/Narrative Re-Assessment/Exam: 04/28/21 20:51 Hematology is essentially unremarkable Chemistry reveals a sodium of 139, potassium 3.6, anion gap 13.6, BUN 13, creatinine 0.7, GFR greater than 60, glucose 106, magnesium 1.9, total bilirubin 0.2, AST 18, ALT 23, alk phos 66, C-reactive protein 3.3, lipase 70 Urinalysis reveals a trace of leukocyte Estrace, urine WBC 0-5, urine squamous epithelial cells 5-10, urine bacteria moderate Discussed lab results and x-ray results with the patient. She states she is feeling to slightly better however still having a significant amount of abdominal discomfort. Will obtain a CT of the abdomen and pelvis with contrast. - My Orders Last 24 Hours: My Active Orders 04/28/21 18:48 Saline Lock Insert [OM.PC] Stat 04/28/21 20:00 CULTURE URINE [MREF] Stat - Assessment/Plan Last 24 Hours: My Active Orders 04/28/21 18:48 Saline Lock Insert [OM.PC] Stat 04/28/21 20:00 CULTURE URINE [MREF] Stat
[2021-04-28] MEDS ORDERED: Iopamidol 612 MG/ML 100 ML Bottle IVPUSH ONE (21:47)
[2021-04-28] MEDS ORDERED: Iopamidol 612 MG/ML 50 ML SDV IVPUSH ONE (21:47)
[2021-04-28] MEDS ORDERED: Sodium Chloride 0.9% 10 ML SDV FLUSH ONE (21:47)
[2021-04-28] MEDS ORDERED: Diatrizoate Meglumine/Diatrizoate Sodium 37% 120 ML Bottle PO ONE (21:47)
[2021-04-28] MEDS ORDERED: Nitrofurantoin Monohydrate/Macrocrystalline 100 MG Cap PO ONE (22:45)
--- NOTE | 2021-04-29 08:01 | CR ---
Abdomen: Supine view of the abdomen was obtained. Comparison: No prior abdominal imaging is available. Bowel gas pattern is normal. No abnormal calcifications or soft tissue abnormality is seen. Bony structures show nothing acute. Impression: 1. Nothing acute is seen on supine abdominal x-ray. Diagnostic code #1
--- NOTE | 2021-04-29 09:25 | CT ---
CT abdomen and pelvis Technique: Multiple axial sections were obtained from above the dome of the diaphragm inferiorly through the pubic symphysis. Intravenous and oral contrast were utilized. Delayed images were obtained through the bladder. Reconstructed coronal and sagittal images were obtained. Comparison: No prior CT abdomen or pelvis study is available. Previous abdominal x-ray performed earlier on the same day (7:21 PM). Findings: 2.4 mm nodule is noted within the left lung base which shows no calcifications. Other portions of the visualized lung bases show nothing acute. Liver contains slight fatty infiltration. Liver shows no focal abnormality. Spleen appears normal. Adrenal glands show no nodule. Pancreas appears within normal limits. Kidneys show symmetric contrast enhancement. No hydronephrosis or mass is seen. Gallbladder contains no calcified gallstones. Abdominal aorta shows no aneurysm. Minimal lymph nodes are seen within the retroperitoneum which are felt to be within normal limits. No mesenteric abnormalities are seen. Very minimal fat-containing umbilical hernia is noted. No pelvic mass or adenopathy is seen. Appendix is not visualized. Delayed images show contrast within the distal ureters and within the bladder. Bone window settings were reviewed which appear within normal limits for the patient's age. Impression: 1. 2.4 mm nodule within the left lung base which shows no calcifications. This is likely incidental given the patient's age. 2. Minimal fatty infiltration within the liver. 3. Nothing acute is appreciated on CT study of the abdomen and pelvis. 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
== END 2021-04-28 23:01 | disposition home or self-care (01) ==
LOC: JD.ED 18:03
DX: N30.00 Acute cystitis without hematuria (principal); Z88.1 Allergy status to other antibiotic agents; Z79.899 Other long term (current) drug therapy
CPT/HCPCS: 36415; 74018; 74177; 80053; 81001; 83690; 83735; 85025; 86140; 87086; 96374; 96375; 99284; A9270; J1170; J2405; J7030; Q9963; Q9967; 99285

== ENCOUNTER 2021-09-18 18:47 | Emergency (ER) | payer BC ==
[2021-09-18 19:25] VITALS: BP 142/91; PULSE 90
== END 2021-09-18 21:50 | disposition home or self-care (01) ==
LOC: JD.ED 18:47
DX: R10.2 Pelvic and perineal pain (principal); F41.9 Anxiety disorder, unspecified; Z79.899 Other long term (current) drug therapy; Z88.1 Allergy status to other antibiotic agents; Z88.2 Allergy status to sulfonamides
CPT/HCPCS: 76830; 76830-26; 81003; 81025; 99284-25

== ENCOUNTER 2021-12-08 17:04 | Emergency (ER) | payer BC, OTHER ==
[2021-12-08 17:21] VITALS: BP 126/86; PULSE 85
[2021-12-08] MEDS ORDERED: Sodium Chloride 0.9% 10 ML Syringe FLUSH PRN (17:36)
[2021-12-08] MEDS ORDERED: Ondansetron 4 MG/2 ML SDV IVPUSH ONE (18:50)
[2021-12-08] MEDS ORDERED: HYDROmorphone 0.5 MG/0.5 ML Syringe IVPUSH ONE (18:50)
[2021-12-08] MEDS ORDERED: Ketorolac 30 MG/ML SDV IVPUSH ONE (20:08)
== END 2021-12-08 20:28 | disposition home or self-care (01) ==
LOC: JD.ED 17:04
DX: K63.89 Other specified diseases of intestine (principal); Z88.1 Allergy status to other antibiotic agents; Z79.84 Long term (current) use of oral hypoglycemic drugs
CPT/HCPCS: 36415; 74177; 80053; 81001; 84703; 85025; 86140; 96374; 96375; 99284; J1170; J1885; J2405; J3490

== ENCOUNTER 2023-03-23 19:40 | Emergency (ER) | payer BC ==
[2023-03-23] MEDS ORDERED: EPINEPHrine 1 MG/ML SDV IM ONE (19:57)
[2023-03-23] MEDS ORDERED: diphenhydrAMINE 50 MG/ML SDV IVPUSH ONE (19:59)
[2023-03-23] MEDS ORDERED: methylPREDNISolone Sodium Succinate 125 MG/2 ML SDV IVPUSH ONE (19:59)
[2023-03-23] MEDS ORDERED: Famotidine 20 MG/2 ML SDV IVPUSH ONE (19:59)
[2023-03-23 22:13] VITALS: BP 143/89; PULSE 78
== END 2023-03-23 22:14 | disposition home or self-care (01) ==
LOC: JD.ED 19:40
DX: R22.1 Localized swelling, mass and lump, neck (principal); R06.02 Shortness of breath; T45.0X5A Adverse effect of antiallergic and antiemetic drugs, initial encounter; Z98.890 Other specified postprocedural states; Z88.8 Allergy status to other drugs, medicaments and biological substances; Z88.2 Allergy status to sulfonamides
CPT/HCPCS: 96372; 96374; 96375; 99283-25; 99284; J0171; J1200; J2930; J3490

== ENCOUNTER 2023-10-31 18:39 | Emergency (ER) | payer BC ==
[2023-10-31] MEDS: Iopamidol 612 MG/ML 100 ML Bottle IVPUSH ONE (19:12)
[2023-10-31 19:20] LABS: BASOPHILS PERCENT AUTO 0.4 % (0.0-1.0); EOSINOPHILS ABSOLUTE AUTO 0.1 K/mm3 (0.0-0.4); EOSINOPHILS PERCENT AUTO 1.6 % (0.0-6.0); HEMOGLOBIN 12.3 gm/dl (12.0-16.0); IMMATURE GRAN ABSOLUTE AUTO 0.02 K/mm3 (0.00-0.05); IMMATURE GRAN PERCENT AUTO 0.3 % (0.0-0.4); LYMPHOCYTES ABSOLUTE AUTO 2.2 K/mm3 (1.0-4.8); LYMPHOCYTES PERCENT AUTO 28.2 % (24.0-44.0); MEAN CORPUSCULAR HEMOGLOBIN 27.8 pg (28.0-32.0); MEAN CORPUSCULAR HGB CONC 33.2 g/dl (32.0-36.0); MEAN CORPUSCULAR VOLUME 83.5 fl (83.0-99.0); MEAN PLATELET VOLUME 8.8 fl (9.4-12.3); MONOCYTES ABSOLUTE AUTO 0.3 K/mm3 (0.0-0.8); MONOCYTES PERCENT AUTO 3.4 % (0.0-8.0); NEUTROPHILS ABSOLUTE AUTO 5.1 K/mm3 (1.8-7.7); NEUTROPHILS PERCENT AUTO 66.1 % (41.0-71.0); PLATELET COUNT,PLT 327 K/mm3 (150-400); RED BLOOD CELL COUNT 4.43 M/mm3 (4.10-5.30); WHITE BLOOD CELL COUNT,WBC 7.72 K/mm3 (3.9-11.3)
[2023-10-31] MEDS: Ketorolac 30 MG/ML SDV IVPUSH ONE (19:25)
[2023-10-31] MEDS: Sodium Chloride 0.9% 10 ML Syringe FLUSH PRN (19:26)
[2023-10-31 19:43] LABS: ALBUMIN 3.6 g/dl (3.4-5.0); ANION GAP 12.7 (5-15); BILIRUBIN TOTAL 0.3 mg/dL (0.2-1.0); C-REACTIVE PROTEIN 1.48 mg/dL (<0.30); CALCIUM 9.1 mg/dL (8.5-10.1); CREATININE 0.6 mg/dL (0.55-1.02); EST CRCL DRUG DOSING (CG) 116.5 mL/min; POTASSIUM,K 3.7 mEq/L (3.5-5.1); PROTEIN TOTAL,TP 7.1 g/dl (6.4-8.2)
[2023-10-31] MEDS: cefTRIAXone 2 GM in Sodium Chloride 0.9% 100 ML IV ONE (20:20)
[2023-10-31 20:44] VITALS: BP 125/77; PULSE 66
[2023-10-31] MEDS: predniSONE 20 MG Tab PO ONE (20:49)
== END 2023-10-31 20:53 | disposition home or self-care (01) ==
LOC: JD.ED 18:39
DX: R68.84 Jaw pain (principal); R22.1 Localized swelling, mass and lump, neck; Z79.899 Other long term (current) drug therapy; Z88.2 Allergy status to sulfonamides; Z88.8 Allergy status to other drugs, medicaments and biological substances
CPT/HCPCS: 36415; 70491; 80053; 84703; 85025; 86140; 96365; 96375; 99284; J0696; J1885; J3490; J7512; Q9967

== ENCOUNTER 2024-07-18 18:20 | Emergency (ER) | payer BC, OTHER ==
[2024-07-18] MEDS ORDERED: Sodium Chloride 0.9% 10 ML Syringe FLUSH PRN (19:32)
[2024-07-18] MEDS: Sodium Chloride 0.9% 1,000 ML IV STA (20:01)
[2024-07-18] MEDS: Prochlorperazine 10 MG/2 ML SDV IVPUSH ONE (20:02)
[2024-07-18] MEDS: diphenhydrAMINE 50 MG/ML SDV IVPUSH ONE (20:02)
[2024-07-18 20:03] LABS: BASOPHILS PERCENT AUTO 0.2 % (0.0-1.0); EOSINOPHILS PERCENT AUTO 0.2 % (0.0-6.0); HEMATOCRIT 41.3 % (37.0-47.0); HEMOGLOBIN 13.7 gm/dl (12.0-16.0); IMMATURE GRAN ABSOLUTE AUTO 0.05 K/mm3 (0.00-0.05); IMMATURE GRAN PERCENT AUTO 0.5 % (0.0-0.4); LYMPHOCYTES ABSOLUTE AUTO 0.5 K/mm3 (1.0-4.8); LYMPHOCYTES PERCENT AUTO 4.9 % (24.0-44.0); MEAN CORPUSCULAR HEMOGLOBIN 28.4 pg (28.0-32.0); MEAN CORPUSCULAR HGB CONC 33.2 g/dl (32.0-36.0); MEAN CORPUSCULAR VOLUME 85.5 fl (83.0-99.0); MONOCYTES ABSOLUTE AUTO 0.3 K/mm3 (0.0-0.8); MONOCYTES PERCENT AUTO 2.6 % (0.0-8.0); NEUTROPHILS ABSOLUTE AUTO 8.8 K/mm3 (1.8-7.7); NEUTROPHILS PERCENT AUTO 91.6 % (41.0-71.0); PLATELET COUNT,PLT 276 K/mm3 (150-400); RED BLOOD CELL COUNT 4.83 M/mm3 (4.10-5.30); WHITE BLOOD CELL COUNT,WBC 9.63 K/mm3 (3.9-11.3)
[2024-07-18 20:31] LABS: A/G RATIO 0.8 (1-2); ALBUMIN 3.3 g/dl (3.4-5.0); ANION GAP 15.4 (5-15); BILIRUBIN TOTAL 0.5 mg/dL (0.2-1.0); BUN/CREATININE RATIO 13.3 (14-18); CALCIUM 9.2 mg/dL (8.5-10.1); CREATININE 0.6 mg/dL (0.55-1.02); EST CRCL DRUG DOSING (CG) 120.54 mL/min; POTASSIUM,K 3.4 mEq/L (3.5-5.1); PROTEIN TOTAL,TP 7.4 g/dl (6.4-8.2)
[2024-07-18 20:38] LABS: SLIDE REVIEW ABNORMAL SMEAR
[2024-07-18 21:15] LABS: APPEARANCE,URINE CLEAR (Clear); BILIRUBIN,URINE 1+ (Negative); COLOR,URINE YELLOW (Yellow); GLUCOSE,URINE NEGATIVE (Negative); KETONES,URINE 4+ (Negative); LEUKOCYTE ESTERASE,URINE NEGATIVE (Negative); NITRITE,URINE NEGATIVE (Negative); OCCULT BLOOD,URINE NEGATIVE (Negative); PH,URINE 6.5 (5.0-8.0); PROTEIN,URINE 1+ (Negative)
[2024-07-18 21:22] LABS: RBC,URINE 0-5 /hpf (0-5); WBC,URINE 0-5 /hpf (0-5)
[2024-07-18 21:23] LABS: BACTERIA,URINE MODERATE /hpf (FEW); MUCUS,URINE MANY /hpf (FEW)
[2024-07-19 00:24] VITALS: BP 131/87; PULSE 99
== END 2024-07-18 22:24 | disposition home or self-care (01) ==
LOC: JD.ED 18:20
DX: O21.9 Vomiting of pregnancy, unspecified (principal); Z88.8 Allergy status to other drugs, medicaments and biological substances; Z79.84 Long term (current) use of oral hypoglycemic drugs; Z79.52 Long term (current) use of systemic steroids; Z79.899 Other long term (current) drug therapy; Z3A.12 12 weeks gestation of pregnancy
CPT/HCPCS: 36415; 80053; 81001; 85025; 96361; 96374; 96375; 99284; J0780; J1200; J7030